=== PATIENT | male | born 1955 | race Caucasian/White ===

== ENCOUNTER → 2019-09-05 | Outpatient (CLI) | payer OTHER ==
[~2019-09-05] MED LIST: REGADENOSON INJ 0.4 MG/5 ML DISP.SYRIN IV ONE
--- NOTE | 2019-09-05 14:34 | DRAGON STRESS TEST REPORT ---
Pharmacological nuclear stress test Date: September 05, 2019 Referring physician: Rob Michael MD Performing physician: Rob Michael MD Indication: Chest pain Clinical history 63-year-old male with medical history significant for coronary artery disease status post CABG in 2008. He also has systemic hypertension, dyslipidemia and continues to smoke cigarettes. He presented to the office with symptoms of chest pain concerning for angina. We decided to proceed with pharmacological nuclear stress testing. Procedure The patient presented to the stress lab. Initially rest images were obtained according to standard protocol after the injection of 14.63 millicurie technetium 99m sestamibi. Subsequently the patient underwent pharmacological stress utilizing 0.4 mg of regadenoson intravenously. The patient's EKG and vital signs were monitored throughout the procedure. Subsequently patient was injected with 40 millicuries of technetium 99m sestamibi. After a period of rest, stress images were obtained according to standard protocol. EKG showed sinus rhythm at 68 beats per minute. The patient's stress EKG did not show any evidence for myocardial ischemia. There were no arrhythmias observed. Raw as well as processed rest and stress images were reviewed. There was mild to moderate gut uptake which did not interfere with the study. The rest and stress images show uniform uptake of radioactive isotope without any fixed or reversible defects to suggest myocardial ischemia or myocardial infarction. There is normal contractility post-rest. The calculated ejection fraction is 43%. The TID ratio is 1.10. Conclusion The stress EKG is negative for myocardial ischemia There is no scintigraphic evidence of myocardial infarction or ischemia provoked by pharmacological stress. There is normal contractility post-stress. The gated left ventricular ejection fraction is 43 %. The patient will be given an appointment to discuss these results. [facility]
--- NOTE | 2019-09-05 18:02 | XCELERA REPORT ---
[address] [address] Transthoracic Echocardiogram Report Name: GOOD PEÑALOZA Age: 63 yrs Gender: Male : 1955 Patient Status: Outpatient Patient Location: RAD Study Date: 09/05/2019 09:49 AM History: CAD CABG Chest pain Height: 69 in Weight: 207 lb BSA: 2.1 m2 Procedure: A complete two-dimensional transthoracic echocardiogram was performed (2D, M-mode, spectral and color flow Doppler). The study was technically difficult with many images being suboptimal in quality. Reason For Study: CP, MURMUR Previous Evaluation: No previous studies were available. History: CAD. Dyslipidemia. Hyperlipidemia. Vascular surgeries/interventions: CABG. Chest pain. Ordering Physician: BRANDEN LOVE Performed By: Simon Ibarra Interpretation Summary Left ventricular systolic function is normal. The Ejection Fraction estimate is 55-60% The right ventricle is normal in size and function. There is a trace amount of mitral regurgitation There is no aortic valve stenosis There is a trace amount of tricuspid regurgitation Doppler findings do not suggest pulmonary hypertension. There is no pericardial effusion. MMode/2D Measurements & Calculations RVDd: 2.6 cm LVIDd: 6.2 cm FS: 34.4 % Ao root diam: IVSd: 0.83 cm LVIDs: 4.1 cm EDV(Teich): 3.2 cm LVPWd: 0.79 cm 195.7 ml Ao root area: ESV(Teich): 8.0 cm2 73.5 ml LA dimension: EF(Teich): 62.4 % 4.4 cm LVLd ap4: 8.9 cm SV(MOD-sp4): 68.0 ml EDV(MOD-sp4): 130.0 ml LVLs ap4: 7.2 cm ESV(MOD-sp4): 62.0 ml EF(MOD-sp4): 52.3 % Doppler Measurements & Calculations MV E max jasbir: MV P1/2t max jasbir: Ao V2 max: LV V1 max P.6 cm/sec 106.4 cm/sec 120.0 cm/sec 4.6 mmHg MV A max jasbir: MV P1/2t: 56.4 msec Ao max P.8 mmHgLV V1 max: 92.3 cm/sec MVA(P1/2t): 3.9 cm2 107.6 cm/sec MV E/A: 1.1 MV dec slope: 552.8 cm/sec2 MV dec time: 0.24 sec PA V2 max: PI end-d jasbir: MV P1/2t-pr_phl: 108.6 cm/sec 70.8 cm/sec 56.4 msec PA max P.7 mmHg Left Ventricle The left ventricle is grossly normal size. Left ventricular systolic function is normal. The Ejection Fraction estimate is 55-60%. Doppler measurements suggest pseudonormalized left ventricular relaxation, which is associated with grade II/IV or mild to moderate diastolic dysfunction. The left ventricular wall motion is normal. Right Ventricle The right ventricle is normal in size and function. Atria The right atrium is normal. The left atrial size is normal. The interatrial septum is intact with no evidence for an atrial septal defect. Mitral Valve The mitral valve is grossly normal. There is no evidence of mitral valve prolapse. There is no mitral valve stenosis. There is a trace amount of mitral regurgitation. Aortic Valve The aortic valve is normal in structure and function. The aortic valve opens well. The aortic valve is trileaflet. There is no aortic valve stenosis. No aortic regurgitation is present. Tricuspid Valve The tricuspid valve is normal in structure and function. There is a trace amount of tricuspid regurgitation. Tricuspid regurgitation jet envelope not well defined to measure RV systolic pressure accurately. Doppler findings do not suggest pulmonary hypertension. Pulmonic Valve The pulmonic valve is not well visualized. There is a mild amount of pulmonic regurgitation. Great Vessels The aortic root is normal size. The inferior vena cava was not well visualized. Effusions There is no pericardial effusion. : BRANDEN LOVE Anil
== END ==
LOC: RAD 06:41
PROVIDERS: ATTEND Internal Medicine
DX: R07.9 Chest pain, unspecified (principal); I10 Essential (primary) hypertension; I25.119 Atherosclerotic heart disease of native coronary artery with unspecified angina pectoris; R01.1 Cardiac murmur, unspecified; E78.5 Hyperlipidemia, unspecified; F17.210 Nicotine dependence, cigarettes, uncomplicated
CPT/HCPCS: 93306; 93017; 78452; A9500; J2785; Q9969

== ENCOUNTER → 2020-03-31 | Outpatient (CLI) | payer OTHER ==
[~2020-03-31] MED LIST changes: +COVID-19 VACCINE (PFIZER)/PF 30 MCG/0.3 ML VIAL IM ONE; +EPINEPHRINE INJ/PF 1 MG/1 ML AMPULE IM PRN; -REGADENOSON INJ 0.4 MG/5 ML DISP.SYRIN IV ONE
== END ==
LOC: EMPHEALTH 15:11
PROVIDERS: ATTEND Internal Medicine
DX: Z23 Encounter for immunization (principal)
CPT/HCPCS: 91300